=== PATIENT | male | born 1940 | race Caucasian/White ===

== ENCOUNTER 2018-11-07 06:06 | Inpatient (IN) | payer OTHER ==
[~2018-11-07 06:06] MED LIST: ROPIVICAINE 0.2%/MORPH PF/KETOROLAC - 51ML DISP.SYRINGE IA ONE; VANCOMYCIN 1,000 MG VIAL (RESTRICTED TO ID ONLY) IVPB ONE
[2018-11-07] MEDS ORDERED: BUPIVACAINE HCL/PF 0.5% (5MG/ML) 10 ML VIAL ONE (06:30)
[2018-11-07] MEDS ORDERED: ROPIVACAINE HCL 0.5% 30ML VIAL ONE (06:30)
[2018-11-07] MEDS ORDERED: PROPOFOL 20 ML ONE ×6 (06:32)
[2018-11-07] MEDS ORDERED: LIDOCAINE HCL/PF 2% SDV 5ML VIAL ONE (06:32)
[2018-11-07] MEDS ORDERED: SUCCINYLCHOLINE CHLORIDE 200 MG/10 ML VIAL ONE (06:32)
[2018-11-07 06:55] VITALS: BMI 27.2
[2018-11-07] MEDS ORDERED: TRANEXAMIC ACID 1000 MG/10 ML VIAL IVPUSH ONE ×2 (07:21→11:07)
[2018-11-07] MEDS ORDERED: ROPIVICAINE 0.2%/MORPH PF/KETOROLAC - 51ML DISP.SYRINGE IA ONE ×2 (07:21→10:15)
[2018-11-07] MEDS ORDERED: CEFAZOLIN 2 GM in DEXTROSE 5%-WATER - 50 ML IVPB ONE (07:21)
[2018-11-07] MEDS ORDERED: oxyCODONE HCL 10 MG SUSTAINED ACTING TABLET PO ONE (07:21)
[2018-11-07] MEDS ORDERED: CELECOXIB 200 MG CAPSULE PO ONE (07:21)
[2018-11-07] MEDS ORDERED: BUPIVACAINE LIPOSOME/PF (EXPAREL) 266 MG/20 ML VIAL ONE (07:38)
[2018-11-07] MEDS ORDERED: MIDAZOLAM HCL 2 MG/2 ML SINGLE DOSE VIAL ONE (07:38)
[2018-11-07] MEDS ORDERED: BUPIVACAINE HCL/PF (5 MG/ML) 30 ML VIAL IJ ONE (07:38)
[2018-11-07] MEDS ORDERED: DEXAMETHASONE SOD PHOSPHATE/PF 10 MG/ML SDV ONE (07:49)
--- NOTE | 2018-11-07 08:05 | HP ---
History & Physical Update - History History: No Change - Physical Physical: No Change - Assessment Assessment: No Change - Plan Plan: No Change (Full H&P in paper chart from 11/03/[address] Cordoba)
[2018-11-07] MEDS ORDERED: fentaNYL CITRATE 250 MCG/5 ML VIAL ONE (08:08)
[2018-11-07] MEDS ORDERED: VANCOMYCIN 1,000 MG VIAL (RESTRICTED TO ID ONLY) ONE (09:09)
[2018-11-07] MEDS ORDERED: VANCOMYCIN 1,000 MG VIAL (RESTRICTED TO ID ONLY) IVPB ONE (10:15)
[2018-11-07] MEDS ORDERED: ONDANSETRON 4 MG/2 ML VIAL IVPUSH PRN (10:59)
[2018-11-07] MEDS ORDERED: MAG HYDROX/AL HYDROX/SIMETH 30 ML UNIT-DOSE CUP PO PRN (10:59)
[2018-11-07] MEDS ORDERED: LACTATED RINGERS SOLUTION 1,000 ML IV SCH ×2 (11:00→11:15)
[2018-11-07] MEDS ORDERED: oxyCODONE HCL 5 MG TABLET PO PRN (11:07)
[2018-11-07] MEDS ORDERED: ACETAMINOPHEN 1000 MG/100 ML VIAL (NON FORMULARY) IVPB ONE (11:07)
[2018-11-07] MEDS ORDERED: ACETAMINOPHEN 325 MG TABLET (FP) PO SCH (11:15)
--- NOTE | 2018-11-07 11:15 | OP ---
Operative Note - Note: Operative Date: 11/07/18 Pre-Operative Diagnosis: Left knee osteoarthritis Operation: Left total knee arthroplasty/makoplasty Post-Operative Diagnosis: Same as Pre-op Surgeon: Salazar Hancock [employer] Repairer: Archie Kevin Anesthesiologist/CONTACT CENTER ASSISTANT: Landon Abraham Anesthesia: General, Epidural Fluid Volume Replaced (mls): 800 Operative Report Dictated: Yes
--- NOTE | 2018-11-07 11:16 | SURG ---
Surgery Reverberatory Furnace Supervisor Note Reverberatory Furnace Supervisor: Archie Kevin PA-C Date of Service: 11/07/18 Diagnosis: Left knee osteoarthritis Procedure: Left total knee arthroplasty/makoplasty I was present for the entirety of the operative procedure. For further detail, please refer to operative report. Visit type - Case Type Case Type: Scheduled - Emergency Emergency Visit: No - New patient This patient is new to me today: Yes Date on this admission: 11/07/18
--- NOTE | 2018-11-07 12:21 | CONSULT ---
Consultation: REQUESTING PROVIDER: Dr. Salazar Hancock CONSULT REQUEST: We have been asked to medically follow this patient post- operatively. HISTORY OF PRESENT ILLNESS: 78 year-old male with a PMH significant for HLD, GERD, prostate cancer, polyarthritis s/p right THR x 7 years and s/p left total knee arthroplasty/ makoplasty earlier today. REVIEW OF SYSTEMS: CONSTITUTIONAL: Absent: fever, chills, diaphoresis, generalized weakness, malaise, loss of appetite, weight change HEENT: Absent: rhinorrhea, nasal congestion, throat pain, throat swelling, difficulty swallowing, mouth swelling, ear pain, eye pain, visual changes CARDIOVASCULAR: Absent: chest pain, syncope, palpitations, irregular heart rate, lightheadedness , peripheral edema RESPIRATORY: Absent: cough, shortness of breath, dyspnea with exertion, orthopnea, wheezing, stridor, hemoptysis GASTROINTESTINAL: Absent: abdominal pain, abdominal distension, nausea, vomiting, diarrhea, constipation, melena, hematochezia GENITOURINARY: Absent: dysuria, frequency, urgency, hesitancy, hematuria, flank pain, genital pain MUSCULOSKELETAL: Absent: myalgia, arthralgia, joint swelling, back pain, neck pain SKIN: Absent: rash, itching, pallor HEMATOLOGIC/IMMUNOLOGIC: Absent: easy bleeding, easy bruising, lymphadenopathy, frequent infections ENDOCRINE: Absent: unexplained weight gain, unexplained weight loss, heat intolerance, cold intolerance NEUROLOGIC: Absent: headache, focal weakness or paresthesias, dizziness, unsteady gait, seizure, mental status changes, bladder or bowel incontinence PSYCHIATRIC: Absent: anxiety, depression, suicidal or homicidal ideation, hallucinations. PHYSICAL EXAMINATION Vital Signs - 24 hr 11/07/18 11/07/18 11/07/18 06:49 10:37 11:05 Temperature 97.6 F Pulse Rate 72 86 85 Respiratory 16 16 18 Rate Blood Pressure 122/99 121/82 120/90 O2 Sat by Pulse 98 96 Oximetry (%) GENERAL: Awake, alert, and fully oriented, in no acute distress. Denies pain. HEAD: Normal with no signs of trauma. EYES: Pupils equal, round and reactive to light, sclera anicteric, conjunctiva clear. No lid lag. LUNGS: Breath sounds equal, clear to auscultation bilaterally. No wheezes, and no crackles. No accessory muscle use. HEART: Regular rate and rhythm, S1 and S2 ABDOMEN: Soft, nontender, not distended UPPER EXTREMITIES: 2+ pulses, warm, well-perfused. No cyanosis. No clubbing. Cap refill <2 seconds. No peripheral edema. LOWER EXTREMITIES: LEFT: SCDs, TEDs, mitch wrappings, ice pack; +flexion/ extension toes and feet NEUROLOGICAL: Cranial nerves II-XII intact. Normal speech. Active Medications Generic Name Dose Route Start Last Admin Trade Name Freq PRN Reason Stop Dose Admin Acetaminophen 650 mg 11/07/18 11:15 11/07/18 12:01 Tylenol - PO 11/10/18 11:14 650 mg Q6H MARINA Administration Acetaminophen 1,000 mg 11/07/18 11:07 Ofirmev Injection - IVPB 11/07/18 11:08 ONCE ONE Al Hydroxide/Mg Hydroxide 30 ml 11/07/18 10:59 Mylanta Oral Suspension - PO Q4H PRN DYSPEPSIA Aspirin 325 mg 11/07/18 22:00 Asa - PO BID MARINA Bicalutamide 50 mg 11/07/18 22:00 Casodex - PO HS MARINA Fentanyl 50 mcg 11/07/18 11:07 Sublimaze Injection - IVPUSH [id number] PRN PAIN-PACU ORDER X 4 DOSES ONLY Gabapentin 300 mg 11/07/18 22:00 Neurontin - PO 11/10/18 21:59 BID MARINA Cefazolin Sodium/Dextrose 2 gm in 50 mls @ 100 mls/hr 11/07/18 18:00 Ancef 2 Gm Premixed Ivpb - IVPB 11/08/18 02:29 Q8H-IV MARINA Lactated Ringer's 1,000 mls @ 125 mls/hr 11/07/18 11:00 Lactated Ringers Solution IV 11/08/18 06:00 ASDIR MARINA Multivitamins/Minerals/Vitamin C 1 tab 11/08/18 10:00 Tab-A-Vit - PO DAILY [facility] Non-Formulary Medication 20 mg 11/07/18 22:00 Lovastatin [Lovastatin] PO HS MARINA Ondansetron HCl 4 mg 11/07/18 10:59 Zofran Injection IVPUSH Q6H PRN NAUSEA Oxycodone HCl 10 mg 11/07/18 11:07 Roxicodone - PO Q3H PRN PAIN LEVEL 6-10 Oxycodone HCl 5 mg 11/07/18 11:07 Roxicodone - PO Q3H PRN PAIN LEVEL 1-5 Oxycodone HCl 10 mg 11/07/18 22:00 Oxycontin - PO 11/10/18 11:11 BID MARINA Pantoprazole Sodium 40 mg 11/08/18 10:00 Protonix - PO DAILY MARINA Senna/Docusate Sodium 2 tablet 11/07/18 22:00 Pericolace - PO BID MAIRNA ASSESSMENT/PLAN: 78 year-old male with a PMH significant for HLD, GERD, prostate cancer, polyarthritis s/p right THR x 7 years and s/p left total knee arthroplasty/ makoplasty earlier today. Left total knee arthroplasty/makoplasty 11/07/18 --POD #0 --pain management per surgery --perioperative antibiotics --Hemovac drain, monitor output --ASA 325mg BID --incentive spirometry --physical therapy Hyperlipidemia --on home lovastatin 20mg, no pharmacy equivalent dose GERD --Protonix Prostate cancer --continue bicalutamide FEN Fluids: LR @ 125mL/hr Electrolytes: replete as indicated Nutrition: regular diet DVT prophylaxis: ASA, SCDs, TEDs, oob, ambulation Physical therapy Dispo: We will continue to follow the patient. Thank you for this consultative opportunity. Visit type - Emergency Visit Emergency Visit: No - New Patient This patient is new to me today: Yes Date on this admission: 11/07/18 - Critical Care Critical Care patient: No
[2018-11-07] MEDS: oxyCODONE HCL 5 MG TABLET PO PRN ×2 (15:53→23:46)
[2018-11-07] MEDS ORDERED: CEFAZOLIN 2 GM/D5W 2 GM/50 ML ML IVPB SCH (18:00)
[2018-11-07] MEDS ORDERED: PT OWN MED DRAWER 7, Y5N ONE (21:36)
[2018-11-07] MEDS: ASPIRIN 325 MG TABLET PO SCH (21:43)
[2018-11-07] MEDS: BICALUTAMIDE 50 MG TABLET (FP) PO SCH (21:44)
[2018-11-07] MEDS: ATORVASTATIN CA 10 MG TABLET (FP) PO SCH (21:44)
[2018-11-07] MEDS: oxyCODONE HCL 10 MG SUSTAINED ACTING TABLET PO SCH (21:45)
[2018-11-07] MEDS: GABAPENTIN 300 MG CAPSULE (FP) PO SCH (21:45)
[2018-11-07] MEDS: SENNOSIDES/DOCUSATE COMBO (SENNA PLUS) TABLET (UD) PO SCH (21:45)
[2018-11-07] MEDS ORDERED: GABAPENTIN 300 MG CAPSULE (FP) PO SCH (22:00)
[2018-11-08] MEDS: ACETAMINOPHEN 325 MG TABLET (FP) PO SCH ×5 (00:18→23:57)
[2018-11-08] MEDS: oxyCODONE HCL 5 MG TABLET PO PRN ×5 (06:37→23:55)
[2018-11-08 09:07] LABS: HEMATOCRIT 38.2 % (35.4-49); HEMOGLOBIN 12.4 GM/dl (11.7-16.9); MCH 31.4 pg (25.7-33.7); MCHC 32.6 g/dl (32.0-35.9); MEAN CELL VOLUME 96.2 fl (80-96); PLATELET COUNT 172 K/MM3 (134-434); RBC 3.97 M/mm3 (4.00-5.60); RDW 12.5 % (11.9-15.9); WHITE BLOOD COUNT 7.3 K/mm3 (4.0-10.8)
[2018-11-08 09:15] LABS: ANION GAP 7 MMOL/L (8-16); BLOOD UREA NITROGEN 11 mg/dl (7-18); CALCIUM 8.8 mg/dl (8.4-10.2); CHLORIDE 99 mmol/L (98-107); CO2 27 mmol/L (22-28); CREATININE 0.8 mg/dl (0.6-1.3); GLUCOSE,RANDOM 123 mg/dl (74-106); MAGNESIUM 1.9 mg/dL (1.8-2.4); POTASSIUM 4.3 mmol/L (3.5-5.1); SODIUM 133 mmol/L (136-145)
--- NOTE | 2018-11-08 09:17 | PN ---
Progress Note (short form) - Note Progress Note: no acute events nad a and o x3 lle compartments soft dressing dry i removed drain nvid A/P: POD#1 s/p L TKA -pt/ot -pain control -vte proph w mech and asa -dispo: likely home w vns if remains stable tomorrow
[2018-11-08] MEDS ORDERED: MULTIVITAMINS (DAILY MVI) TABLET (FP) PO SCH ×2 (10:00)
[2018-11-08] MEDS ORDERED: PATIENT'S OWN MEDICATION (NON-FORMULARY) (Omeprazole [Omeprazole] 20 MG) PO SCH (10:00)
[2018-11-08] MEDS ORDERED: PANTOPRAZOLE 40 MG TABLET (FP) PO SCH (10:00)
[2018-11-08] MEDS: SENNOSIDES/DOCUSATE COMBO (SENNA PLUS) TABLET (UD) PO SCH ×2 (10:56→21:38)
[2018-11-08] MEDS: oxyCODONE HCL 10 MG SUSTAINED ACTING TABLET PO SCH ×2 (10:56→21:35)
[2018-11-08] MEDS: GABAPENTIN 300 MG CAPSULE (FP) PO SCH ×2 (10:56→21:38)
[2018-11-08] MEDS: ASPIRIN 325 MG TABLET PO SCH ×2 (10:56→21:36)
--- NOTE | 2018-11-08 14:17 | PN ---
Physical Exam: SUBJECTIVE: Patient seen and examined. Voices no complaints. OBJECTIVE: Vital Signs Period Temp Pulse Resp BP Sys/Herbert Pulse Ox Last 24 Hr 97.3 F-97.6 F 67-74 16-18 112-121/62-68 95-97 GENERAL: Awake, alert, and fully oriented, in no acute distress. Denies pain. HEAD: Normal with no signs of trauma. EYES: Pupils equal, round and reactive to light, sclera anicteric, conjunctiva clear. No lid lag. LUNGS: Breath sounds equal, clear to auscultation bilaterally. No wheezes, and no crackles. No accessory muscle use. HEART: Regular rate and rhythm, S1 and S2 ABDOMEN: Soft, nontender, not distended UPPER EXTREMITIES: 2+ pulses, warm, well-perfused. No cyanosis. No clubbing. Cap refill <2 seconds. No peripheral edema. LOWER EXTREMITIES: LEFT: SCDs, TEDs, mitch wrappings, ice pack; +flexion/ extension toes NEUROLOGICAL: Cranial nerves II-XII intact. Normal speech. Laboratory Results - last 24 hr 11/08/18 11/08/18 07:15 07:15 WBC 7.3 RBC 3.97 L Hgb 12.4 Hct 38.2 MCV 96.2 H MCH 31.4 MCHC 32.6 RDW 12.5 Plt Count 172 MPV 9.0 Sodium 133 L Potassium 4.3 Chloride 99 Carbon Dioxide 27 Anion Gap 7 L BUN 11 Creatinine 0.8 Creat Clearance w eGFR > 60 Random Glucose 123 H D Calcium 8.8 Magnesium 1.9 ` Active Medications Generic Name Dose Route Start Last Admin Trade Name Nixonq PRN Reason Stop Dose Admin Acetaminophen 650 mg 11/07/18 18:00 11/08/18 06:37 Tylenol - PO 11/10/18 11:14 650 mg Q6H MARINA Administration Al Hydroxide/Mg Hydroxide 30 ml 11/07/18 10:59 Mylanta Oral Suspension - PO Q4H PRN DYSPEPSIA Aspirin 325 mg 11/07/18 22:00 11/08/18 10:56 Asa - PO 325 mg BID MARINA Administration Atorvastatin Calcium 10 mg 11/07/18 22:00 11/07/18 21:44 Lipitor - PO 10 mg HS MARINA Administration Bicalutamide 50 mg 11/07/18 22:00 11/07/18 21:44 Casodex - PO 50 mg HS MARINA Administration Fentanyl 50 mcg 11/07/18 11:07 Sublimaze Injection - IVPUSH [id number] PRN PAIN-PACU ORDER X 4 DOSES ONLY Gabapentin 300 mg 11/07/18 22:00 11/08/18 10:56 Neurontin - PO 11/10/18 21:59 300 mg BID MARINA Administration Multivitamins/Minerals/Vitamin C 1 tab 11/08/18 10:00 11/08/18 09:09 Tab-A-Vit - PO 1 tab DAILY MARINA Administration Ondansetron HCl 4 mg 11/07/18 10:59 Zofran Injection IVPUSH Q6H PRN NAUSEA Oxycodone HCl 10 mg 11/07/18 11:07 11/08/18 10:56 Roxicodone - PO 10 mg Q3H PRN Administration PAIN LEVEL 6-10 Oxycodone HCl 5 mg 11/07/18 11:07 11/07/18 20:18 Roxicodone - PO 5 mg Q3H PRN Administration PAIN LEVEL 1-5 Oxycodone HCl 10 mg 11/07/18 22:00 11/08/18 10:56 Oxycontin - PO 11/10/18 11:11 10 mg BID MARINA Administration Pantoprazole Sodium 40 mg 11/08/18 10:00 11/08/18 10:56 Protonix - PO 40 mg DAILY MARINA Administration Senna/Docusate Sodium 2 tablet 11/07/18 22:00 11/08/18 10:56 Pericolace - PO 2 tablet BID MARINA Administration ASSESSMENT/PLAN 78 year-old male with a PMH significant for HLD, GERD, prostate cancer, polyarthritis s/p right THR x 7 years and s/p left total knee arthroplasty/ makoplasty earlier today. Left total knee arthroplasty/makoplasty 11/07/18 --POD #1 --pain management per surgery --perioperative antibiotics complete --Hemovac drain d/c'd today by surgery --ASA 325mg BID --incentive spirometry --physical therapy Hyperlipidemia --on home lovastatin 20mg, no pharmacy equivalent dose GERD --Protonix Prostate cancer --continue bicalutamide FEN Fluids: PO intake adequate Electrolytes: replete as indicated Nutrition: regular diet DVT prophylaxis: ASA, SCDs, TEDs, oob, ambulation Physical therapy Dispo: We will continue to follow the patient. Thank you for this consultative opportunity. Visit type - Emergency Visit Emergency Visit: Yes ED Registration Date: 11/07/18 Care time: The patient presented to the Emergency Department on the above date and was hospitalized for further evaluation of their emergent condition. - New Patient This patient is new to me today: No - Critical Care Critical Care patient: No
--- NOTE | 2018-11-08 14:59 | OP ---
DATE OF OPERATION: 11/07/2018 PREOPERATIVE DIAGNOSIS: Left knee osteoarthritis. POSTOPERATIVE DIAGNOSIS: Left knee osteoarthritis. OPERATION PERFORMED: Left total knee arthroplasty. SURGEON: Salazar Hancock MD DECK SPECIALIST: Archie. TYPE OF ANESTHESIA: Spinal and block DISPOSITION: Patient returned to the recovery room in stable condition. COMPONENTS USED: [employer] Triathlon, all components cemented, size 7 posterior stabilized femur, size 7 tibia, [place] baseplate, 11-mm posterior stabilized articular insert, and 36-mm patella. DRAINS PLACED: One Hemovac. ESTIMATED BLOOD LOSS: Less than 60 mL. TOTAL TOURNIQUET TIME: 111 minutes. FINDINGS: Severe arthritis INDICATIONS FOR THE PROCEDURE: Patient failed non-operative treatment for left knee arthritis and was indicated for left total knee replacement. Preoperatively in the waiting area as well as the office, I had a long discussion with the patient regarding the plan, the expected outcome, and the risks, benefits, and alternatives of the surgery. The risks include, but are not limited to, infection which may require future surgery and removal of implants, bleeding which may require a transfusion, damage to nerves, arteries, veins, tendons, muscles, and other adjacent structures leading to possible numbness, weakness, decreased function, and/or possible need for surgical repair. Also discussed was the possibility of intraoperative and postoperative fractures, implant loosening, stiffness, need for extensive therapy and need for revision for a variety of reasons. We also discussed blood clots and other possible medical complications. This was discussed at length, and consent was obtained. PROCEDURE IN DETAIL: Patient was taken to the operating room and placed on the operating table in the supine position. Following induction of spinal anesthesia, a well-padded tourniquet was placed high in the left thigh, and the left lower extremity was prepped and draped in a sterile fashion. A time-out was performed to confirm the correct side. We verified that the side was marked and confirmed the correct patient and procedure to be performed as well as that the patient received the appropriate preoperative antibiotics and tranexamic acid and had a compression device on the non-operative leg. The tourniquet was elevated followed by a midline incision and medial parapatellar arthrotomy. Checkpoints and arrays placed in tibia and femur. Patient registered, knee balanced, bone cuts adjusted to account for proper balance. Bone cuts were then made while protecting the surrounding soft tissues. Laminar insole cementer was placed sequentially in medial and lateral joint spaces. Posterior aspects, cruciate ligaments, and menisci were all excised. We then did a trial with our final implants as listed aove. We had good stability, soft tissue tension, range of motion, and patella tracked centrally. The patella was then measured to be 28 mm; 10 mm was cut off using a guide. We then reconstructed with a 36-mm button and performed a lateral double cut. With the patellar trial in place, the patella tracked centrally with good stability, soft tissue tension, and range of motion, and the knee was well balanced. The tibia and femur were then punched and drilled in the appropriate rotation. Trials were then removed after a 3-minute soak with a diluted Betadine solution. The wound was copiously irrigated. Injection was placed, and sequential supplementation was performed starting with the tibia and then the femur. Excess cement was removed. We inserted the final poly, and it seated flush. We then brought the knee to full extension, cemented the patella. When all excess cement was removed and the cement was fully hardened after we copiously irrigated the knee, we then placed the deep drain. The arthrotomy was closed with 0 Vicryl and 0 V-Loc. With the arthrotomy closed, there was good stability, soft tissue tension, range of motion, and patellar tracking. Local anesthetic was injected followed by 2-0 Vicryl and bhargavi for skin. The knee was wrapped in a dry sterile compressive dressing. The tourniquet was released. Compartments were soft at the end of the procedure. Pulses were palpated. WOUND CLASSIFICATION: Clean. COMPLICATIONS: None. SPECIMENS: Bone. Jabari [id number]
[2018-11-08] MEDS ORDERED: PT OWN MED DRAWER 7, Y5N ONE (21:24)
[2018-11-08] MEDS: ATORVASTATIN CA 10 MG TABLET (FP) PO SCH (21:37)
[2018-11-08] MEDS: BICALUTAMIDE 50 MG TABLET (FP) PO SCH (21:38)
[2018-11-09 06:22] VITALS: BP 91/73; PULSE 101; TEMP 98.7
[2018-11-09] MEDS: ACETAMINOPHEN 325 MG TABLET (FP) PO SCH (06:30)
[2018-11-09] MEDS: oxyCODONE HCL 5 MG TABLET PO PRN (06:30)
--- NOTE | 2018-11-09 09:02 | PN ---
Progress Note (short form) - Note Progress Note: no acute events nad a and o x3 lle compartments soft dressing dry nvid A/P: POD#2 s/p L TKA -pt/ot -pain control -vte proph w asa -dispo: likely home w vns if remains stable today, meds sent, dc instructions reviewed
[2018-11-09 09:10] LABS: HEMATOCRIT 39.1 % (35.4-49); HEMOGLOBIN 12.9 GM/dl (11.7-16.9); MCH 31.5 pg (25.7-33.7); MEAN CELL VOLUME 95.5 fl (80-96); MEAN PLT VOLUME 9.9 fl (7.5-11.1); PLATELET COUNT 195 K/MM3 (134-434); RBC 4.09 M/mm3 (4.00-5.60); RDW 12.4 % (11.9-15.9); WHITE BLOOD COUNT 10.8 K/mm3 (4.0-10.8)
--- NOTE | 2018-11-09 09:49 | PN ---
Physical Exam: SUBJECTIVE: Patient seen and examined, c/o mild nausea and constipation, reports left knee pain controlled with pain meds. OBJECTIVE: Vital Signs Period Temp Pulse Resp BP Sys/Herbert Pulse Ox Last 24 Hr 97.8 F-99.6 F 92-103 17-19 91-146/62-73 95-98 GENERAL: The patient is awake, alert, and fully oriented, in no acute distress. HEAD: Normal with no signs of trauma. EYES: PERRL, extraocular movements intact, sclera anicteric, conjunctiva clear. No ptosis. ENT: Ears normal, nares patent, oropharynx clear without exudates, moist mucous membranes. NECK: Trachea midline, full range of motion, supple. LUNGS: Breath sounds equal, clear to auscultation bilaterally, no wheezes, no crackles, no accessory muscle use. HEART: Regular rate and rhythm, S1, S2 without murmur, rub or gallop. ABDOMEN: Soft, nontender, nondistended, normoactive bowel sounds, no guarding, no rebound, no hepatosplenomegaly, no masses. EXTREMITIES: 2+ pulses, warm, well-perfused, no edema, left knee dsg intact. NEUROLOGICAL: Cranial nerves II through XII grossly intact. Normal speech, gait not observed. PSYCH: Normal mood, normal affect. SKIN: Warm, dry, normal turgor, no rashes or lesions noted Laboratory Results - last 24 hr 11/09/18 06:15 WBC 10.8 RBC 4.09 Hgb 12.9 Hct 39.1 MCV 95.5 MCH 31.5 MCHC 33.0 RDW 12.4 Plt Count 195 MPV 9.9 Active Medications Generic Name Dose Route Start Last Admin Trade Name Freq PRN Reason Stop Dose Admin Acetaminophen 650 mg 11/07/18 18:00 11/09/18 06:30 Tylenol - PO 11/10/18 11:14 650 mg Q6H MARINA Administration Al Hydroxide/Mg Hydroxide 30 ml 11/07/18 10:59 Mylanta Oral Suspension - PO Q4H PRN DYSPEPSIA Aspirin 325 mg 11/07/18 22:00 11/08/18 21:36 Asa - PO 325 mg BID MARINA Administration Atorvastatin Calcium 10 mg 11/07/18 22:00 11/08/18 21:37 Lipitor - PO 10 mg HS MARINA Administration Bicalutamide 50 mg 11/07/18 22:00 11/08/18 21:38 Casodex - PO 50 mg HS MARINA Administration Fentanyl 50 mcg 11/07/18 11:07 Sublimaze Injection - IVPUSH [id number] PRN PAIN-PACU ORDER X 4 DOSES ONLY Gabapentin 300 mg 11/07/18 22:00 11/08/18 21:38 Neurontin - PO 11/10/18 21:59 300 mg BID MARINA Administration Multivitamins/Minerals/Vitamin C 1 tab 11/08/18 10:00 11/08/18 09:09 Tab-A-Vit - PO 1 tab DAILY MARINA Administration Ondansetron HCl 4 mg 11/07/18 10:59 Zofran Injection IVPUSH Q6H PRN NAUSEA Oxycodone HCl 10 mg 11/07/18 11:07 11/09/18 06:30 Roxicodone - PO 10 mg Q3H PRN Administration PAIN LEVEL 6-10 Oxycodone HCl 5 mg 11/07/18 11:07 11/07/18 20:18 Roxicodone - PO 5 mg Q3H PRN Administration PAIN LEVEL 1-5 Oxycodone HCl 10 mg 11/07/18 22:00 11/08/18 21:35 Oxycontin - PO 11/10/18 11:11 10 mg BID MARINA Administration Pantoprazole Sodium 40 mg 11/08/18 10:00 11/08/18 10:56 Protonix - PO 40 mg DAILY MARINA Administration Senna/Docusate Sodium 2 tablet 11/07/18 22:00 11/08/18 21:38 Pericolace - PO 2 tablet BID MARINA Administration Laboratory Tests 11/08/18 11/08/18 11/09/18 07:15 07:15 06:15 WBC 7.3 10.8 RBC 3.97 L 4.09 Hgb 12.4 12.9 Hct 38.2 39.1 MCV 96.2 H 95.5 MCH 31.4 31.5 MCHC 32.6 33.0 RDW 12.5 12.4 Plt Count 172 195 MPV 9.0 9.9 Sodium 133 L Potassium 4.3 Chloride 99 Carbon Dioxide 27 Anion Gap 7 L BUN 11 Creatinine 0.8 Creat Clearance w eGFR > 60 Random Glucose 123 H D Calcium 8.8 Magnesium 1.9 ASSESSMENT/PLAN 78 year-old male with a PMH significant for HLD, GERD, prostate cancer, polyarthritis s/p right THR x 7 years and s/p left total knee arthroplasty/ makoplasty. *Left total knee arthroplasty/makoplasty 11/07/18 -POD #2 - ortho input appreciated - Pain control - bowel regimen -encouraged to use incentive spirometry *Hyperlipidemia -on home lovastatin 20mg, no pharmacy equivalent dose *GERD -Protonix *Prostate cancer -will continue Bicalutamide *FEN Fluids: PO intake adequate Electrolytes: replete as indicated Nutrition: regular diet DVT prophylaxis: ASA, SCDs, TEDs, oob, ambulation Physical therapy Dispo:Thank you for this consultative opportunity. Plan DC home as per ortho. Visit type - Emergency Visit Emergency Visit: Yes ED Registration Date: 11/07/18 Care time: The patient presented to the Emergency Department on the above date and was hospitalized for further evaluation of their emergent condition. - New Patient This patient is new to me today: Yes Date on this admission: 11/09/18 - Critical Care Critical Care patient: No
--- NOTE | 2018-11-11 14:56 | PATH ---
Surgical Pathology Report Patient Name: DIOGENES MOSELEY Med. Rec. #: [id number] /Age/Gender: 1940 (Age: 78) / M Account: [id number] Location: [facility] MED-[facility]URG Taken: 11/07/2018 Received: 11/07/2018 Reported: 11/11/2018 Physicians: Salazar Hancock M.D. Specimen(s) Received LEFT KNEE BONES Clinical History Left knee osteoarthritis Final Diagnosis BONE, KNEE, LEFT, TOTAL KNEE REPLACEMENT: BONE WITH DEGENERATIVE JOINT DISEASE, DENSE FIBROCONNECTIVE TISSUE, FIBROADIPOSE TISSUE, AND REACTIVE SYNOVIUM. Electronically Signed Mei De Santiago M.D. Gross Description Received in formalin labeled "left knee bones," is a 14.0 x 10.5 x 2.5 cm aggregate of multiple portions of bone and soft tissue, consistent with knee bones. There is a 2.0 cm in greatest dimension area of eburnation present. The remaining articular surfaces are alvarez-yellow and diffusely granular. The underlying trabecular bone is yellow and hard. Dry Pan Feeder sections are submitted in one cassette, following decalcification. 11/10/201811/10/2018
== END 2018-11-09 11:30 | disposition home health service (06) | DRG 470 ==
LOC: FM/S 06:06
PROVIDERS: ADMIT Orthopaedic Surgery; ATTEND Orthopaedic Surgery
PROC: 8E0Y0CZ Robotic Assisted Procedure of Lower Extremity, Open Approach (ICD-10-PCS; 2018-11-07)
PROC: 0SRD0J9 Replacement of Left Knee Joint with Synthetic Substitute, Cemented, Open Approach (ICD-10-PCS; principal; 2018-11-07 08:00)
DX: M17.12 Unilateral primary osteoarthritis, left knee (principal); I10 Essential (primary) hypertension; E78.5 Hyperlipidemia, unspecified; K21.9 Gastro-esophageal reflux disease without esophagitis; Z85.46 Personal history of malignant neoplasm of prostate
CPT/HCPCS: 36415; 73560-TC-LT-FY; 80048; 83735; 85027; 88305-TC; 88311-TC; 94760; 97116-GP; 97161-GP